=== PATIENT | female | born 1950 | race Hispanic/Latino ===

== ENCOUNTER 2019-11-23 09:28 | Observation (INO) | payer MEDICARE ==
[2019-11-23] MEDS ORDERED: ONDANSETRON 4 MG/2 ML INJ IV ONE ×2 (09:36→11:33)
[2019-11-23] MEDS ORDERED: SODIUM CHLORIDE 0.9% 1000 ML 1,000 ML IV ONE ×3 (09:38→11:33)
[2019-11-23] MEDS ORDERED: SODIUM CHLORIDE 0.9% 1000 ML 1,000 ML ONE (09:40)
[2019-11-23] MEDS ORDERED: ONDANSETRON 4 MG/2 ML INJ ONE (09:40)
--- NOTE | 2019-11-23 09:48 | Emergency Department Report ---
ED General Adult HPI - General Chief complaint: Nausea/Vomiting/Diarrhea Stated complaint: N/V Time Seen by Provider: 11/23/19 09:36 Source: patient, EMS Mode of arrival: Stretcher Limitations: No Limitations - History of Present Illness Initial comments: Patient is 69 years old female with history of hypertension, diabetes and hyperlipidemia. Patient presented to the ER via EMS from home for evaluation of nausea and vomiting. Patient stated that symptoms started yesterday after she ate chicken in a restaurant last night. Patient stated that she is unable to keep anything down. Patient denied any abdominal pain, chest pain, shortness of breath or diarrhea. No fever or chills. - Related Data Allergies Allergy/AdvReac Type Severity Reaction Status Date / Time No Known Allergies Allergy Verified 11/23/19 09:29 ED Review of Systems ROS: Stated complaint: N/V Other details as noted in HPI Comment: All other systems reviewed and negative Constitutional: denies: chills, fever Respiratory: denies: cough, orthopnea, shortness of breath, SOB with exertion, SOB at rest, wheezing Cardiovascular: denies: chest pain, palpitations Gastrointestinal: nausea, vomiting. denies: abdominal pain, diarrhea, constipation, hematemesis, melena, hematochezia Musculoskeletal: denies: back pain Neurological: denies: headache, weakness, numbness, paresthesias, confusion, abnormal gait ED Past Medical Hx - Past Medical History Previous Medical History?: Yes Hx Hypertension: Yes Hx Diabetes: Yes - Surgical History Past Surgical History?: No ED Physical Exam - General Limitations: No Limitations General appearance: alert, other (Patient is actively vomiting in the emergency room) - Head Head exam: Present: atraumatic, normocephalic, normal inspection - Eye Eye exam: Present: normal appearance - ENT ENT exam: Present: mucous membranes dry - Neck Neck exam: Present: normal inspection, full ROM. Absent: tenderness, meningismus, lymphadenopathy, thyromegaly - Respiratory Respiratory exam: Present: normal lung sounds bilaterally - Cardiovascular Cardiovascular Exam: Present: regular rate, normal rhythm, normal heart sounds - GI/Abdominal GI/Abdominal exam: Present: soft, normal bowel sounds. Absent: distended, tenderness, guarding, rebound, rigid, organomegaly, mass, bruit, pulsatile mass, hernia - Extremities Exam Extremities exam: Present: normal inspection, full ROM, normal capillary refill. Absent: tenderness, pedal edema, joint swelling, calf tenderness - Back Exam Back exam: Present: normal inspection, full ROM. Absent: CVA tenderness (R), CVA tenderness (L), muscle spasm, paraspinal tenderness, vertebral tenderness - Neurological Exam Neurological exam: Present: alert, oriented X3, CN II-XII intact, normal gait, reflexes normal. Absent: motor sensory deficit - Psychiatric Psychiatric exam: Present: normal mood - Skin Skin exam: Present: warm, dry, intact, normal color ED Course Vital Signs 11/23/19 11/23/19 11/23/19 09:31 09:35 09:44 Temperature 98.2 F Pulse Rate 89 89 Respiratory 20 Rate Blood Pressure 222/96 Blood Pressure 222/96 [Right] O2 Sat by Pulse 99 100 Oximetry 11/23/19 11/23/19 11/23/19 10:01 10:15 10:31 Temperature Pulse Rate 84 81 83 Respiratory 36 H 13 17 Rate Blood Pressure 222/96 218/116 179/77 Blood Pressure [Right] O2 Sat by Pulse 99 95 83 L Oximetry 11/23/19 11/23/19 11/23/19 10:45 11:01 11:15 Temperature Pulse Rate 78 90 86 Respiratory 17 18 14 Rate Blood Pressure 174/76 174/76 197/137 Blood Pressure [Right] O2 Sat by Pulse 90 97 96 Oximetry 11/23/19 11/23/19 11/23/19 11:45 12:01 12:15 Temperature Pulse Rate 100 H 98 H 98 H Respiratory 19 14 Rate Blood Pressure 197/137 171/88 171/88 Blood Pressure [Right] O2 Sat by Pulse 88 95 Oximetry 11/23/19 12:37 Temperature Pulse Rate 90 Respiratory Rate Blood Pressure 193/77 Blood Pressure [Right] O2 Sat by Pulse Oximetry ED Medical Decision Making - Lab Data Result diagrams: 11/23/19 09:49 11/23/19 14:30 - EKG Data -: EKG Interpreted by Pa EKG shows normal: sinus rhythm Rate: normal - EKG Data Interpretation: no acute changes - Radiology Data Radiology results: report reviewed - Medical Decision Making Patient is 69 years old female with history of hypertension, diabetes and hyperlipidemia. Patient presented to the ER via EMS from home for evaluation of nausea and vomiting. Patient stated that symptoms started yesterday after she ate chicken in a restaurant last night. Patient stated that she is unable to keep anything down. Patient denied any abdominal pain, chest pain, shortness of breath or diarrhea. No fever or chills. Patient with significant intractable nausea and vomiting. Patient received Zofran x2, Reglan, Benadryl and Haldol 5 mg IM. Patient still nauseated. Labs reviewed and showed anion gap of 29 improved to 24 with 2 L of normal saline and 13 units of regular insulin IV. CT abdomen and pelvis is unremarkable. I discussed the patient with Dr. Soto, he agreed to admit the patient to medical service for further management. Critical Care Time: Yes Critical care time in (mins) excluding proc time.: 30 Critical care attestation.: If time is entered above; I have spent that time in minutes in the direct care of this critically ill patient, excluding procedure time. ED Disposition Clinical Impression: DKA (diabetic ketoacidoses), Intractable nausea and vomiting Disposition: OP ADMIT IP TO THIS HOSP Is pt being admited?: Yes Condition: Stable Instructions: Diabetic Ketoacidosis (ED)
[2019-11-23 10:07] LABS: Basophils # (Auto) 0.1 K/mm3 (0.0-0.1); Basophils % (Auto) 0.5 % (0.0-1.8); Hematocrit 40.4 % (30.3-42.9); Hemoglobin 13.7 gm/dl (10.1-14.3); Lymphocytes # (Auto) 0.9 K/mm3 (1.2-5.4); Lymphocytes % (Auto) 8.1 % (13.4-35.0); Mean Corpuscular HGB Conc 34 % (30-34); Mean Corpuscular Volume 81 fl (79-97); Monocytes # (Auto) 0.4 K/mm3 (0.0-0.8); Monocytes % (Auto) 3.3 % (0.0-7.3); Platelet Count 204 K/mm3 (140-440); Red Blood Count 4.98 M/mm3 (3.65-5.03); Red Cell Distribution Width 13.8 % (13.2-15.2)
[2019-11-23] MEDS ORDERED: METOCLOPRAMIDE 10 MG/2 ML INJ IV ONE (10:11)
[2019-11-23] MEDS ORDERED: METOCLOPRAMIDE 10 MG/2 ML INJ ONE (10:12)
[2019-11-23 10:19] LABS: INR 1.05 (0.87-1.13)
[2019-11-23 10:25] LABS: Albumin 4.5 g/dL (3.9-5); Bilirubin,Direct 0.2 mg/dL (0-0.2)
[2019-11-23] MEDS ORDERED: INSULIN REGULAR, HUMAN 100 UNIT/ML 3ML VIAL IV ONE ×2 (10:45→12:19)
[2019-11-23] MEDS ORDERED: INSULIN REGULAR, HUMAN 100 UNITS/1 ML ONE ×2 (11:00)
[2019-11-23 11:25] LABS: Bacteria,Urine 1+ /HPF (Negative); Bilirubin,Urine NEG (Negative); Blood,Urine MOD (Negative); Color,Urine Colorless (Yellow); Urobilinogen,Urine < 2.0 mg/dL (<2.0); WBC,Urine < 1.0 /HPF (0.0-6.0)
[2019-11-23] MEDS ORDERED: diphenhydrAMINE 50 MG/ML VIAL IV ONE (11:33)
[2019-11-23] MEDS ORDERED: diphenhydrAMINE 50 MG/ML VIAL ONE (11:35)
--- NOTE | 2019-11-23 11:39 | XRay Report ---
CHEST 1 VIEW INDICATION: Abdominal Pain. COMPARISON: None. FINDINGS: Support devices: None. Heart: Normal. Lungs/Pleura: There are mild diffuse reticular markings. This may be due to prominent pulmonary vascu lature. No consolidation or effusion, no pneumothorax. Punctate densities projecting over the right axilla may be outside the patient. These could also be w ithin the soft tissues. IMPRESSION: 1. No acute findings. Signer Name: Hank Shook MD Signed: 11/23/2019 11:34 AM Workstation Name: [id number]
--- NOTE | 2019-11-23 12:20 | Cat Scan Report ---
CT ABDOMEN AND PELVIS WITH CONTRAST INDICATION / CLINICAL INFORMATION: MAIN. TECHNIQUE: Axial CT images were obtained through the abdomen and pelvis after 60 cc of Omnipaque [address] scans at this location are performed using CT dose reduction for ALARA by means of automate d exposure control. COMPARISON: None available. FINDINGS: LOWER CHEST: Mitral apparatus calcification and coronary artery atherosclerotic calcification. HEPATOBILIARY: Diffuse hepatic hypoattenuation possibly representing fatty infiltration. Large periph erally calcified gallstone in the gallbladder. No biliary ductal dilatation. PANCREAS: No significant abnormality. SPLEEN: Mildly enlarged. ADRENALS: No significant abnormality. GENITOURINARY: Mild perinephric fluid stranding slightly greater on the left. No solid renal mass or evidence of obstructive uropathy. GASTROINTESTINAL/MESENTERY: No bowel obstruction or inflammation. No free air or significant free flu id. Appendix demonstrates no significant abnormality. RETROPERITONEUM: No significant adenopathy. REPRODUCTIVE ORGANS: No significant abnormality. VASCULAR: Moderate atherosclerotic calcification without acute abnormality. SKELETAL SYSTEM: Postoperative change of left total hip arthroplasty obscures some evaluation of the pelvic structures. Diffuse degenerative change without acute abnormality. ADDITIONAL FINDINGS: None. IMPRESSION: 1. No acute intra-abdominal or intrapelvic pathology identified. 2. Possible hepatic steatosis. 3. Mild perinephric fluid stranding slightly greater on the left. 4. Cholelithiasis without evidence of acute cholecystitis. Signer Name: Carlos Stoner MD Signed: 11/23/2019 12:16 PM Workstation Name: [id number]
[2019-11-23] MEDS ORDERED: HALOPERIDOL LACTATE 5 MG/1 ML INJ ONE (14:14)
[2019-11-23] MEDS ORDERED: FAMOTIDINE 20 MG/2 ML INJ IV ONE ×2 (14:15→14:31)
[2019-11-23] MEDS ORDERED: HALOPERIDOL LACTATE 5 MG/1 ML INJ IM ONE (14:30)
[2019-11-23 15:04] LABS: Calcium 8.8 mg/dL (8.4-10.2)
--- NOTE | 2019-11-23 15:33 | History and Physical Report ---
History of Present Illness Chief complaint: I have been throwing up and I cannot hold anything down. History of present illness: 69 YO Female with HTN, DM, Obesity, Metabolic Syndrome presents to ED for evaluation. Patient states that she has experienced nausea, multiple episodes of vomiting, and abdominal discomfort over the past 1 day with persistent symptoms over the same timeframe. Patient states that symptoms began approximately 2 hours after eating a complementary chicken dinner that was given to her at a local hotel. Patient reports inability to tolerate oral intake for the past 12 hours. EMS was notified and upon arrival the patient was found to be in distress and subsequently transported to [facility] for further evaluation and care. Patient seen and evaluated in the emergency department. Lab and imaging studies reviewed. Patient found to have clinical symptoms consistent with gastroenteritis, as well as accelerated hypertension, and intractable nausea vomiting. Patient placed in observation status and admitted to medical floor. Patient treated with IV fluid resuscitation therapy, bowel rest, and supportive care. Patient denies fever, chills, chest pain, palpitation, productive cough, skin rash, recent ill contacts, or known exposure to COVID-19. Patient reports inability to take her prehospital medication due to nausea and vomiting. No prior admission for review. No medication listed for reconciliation at the time of admission. Advanced care planning conducted in ED. Past History Past Medical History: diabetes, hypertension Past Surgical History: No surgical history, Other (Reviewed) Social history: . denies: smoking, alcohol abuse, prescription drug abuse Family history: diabetes, hypertension Medications and Allergies Allergies Allergy/AdvReac Type Severity Reaction Status Date / Time No Known Allergies Allergy Verified 11/23/19 09:29 Review of Systems Constitutional: no weight loss, no weight gain, no fever, no chills Ears, nose, mouth and throat: no ear pain, no ear discharge, no tinnitis, no decreased hearing, no nose pain Breasts: no change in shape, no swelling, no mass Cardiovascular: no chest pain, no palpitations, no edema Respiratory: no cough, no cough with sputum Gastrointestinal: no abdominal pain, no nausea, no vomiting, no constipation, no change in bowel habits Genitourinary Female: no pelvic pain, no flank pain, no dysuria, no urinary frequency, no stress incontinence Menstruation: no currently menstrual, no premenarcheal, no post hysterectomy, no ammenorrhea on BC, no period heavy Rectal: no pain, no incontinence, no bleeding Musculoskeletal: no neck stiffness, no shooting arm pain, no arm numbn ess/tingling, no low back pain Integumentary: no rash, no pruritis (Have sepsis protocol), no redness, no wounds, no jaundice Neurological: no head injury, no transient paralysis, no weakness, no numbness, no seizures, no syncope, no tremors Psychiatric: no anxiety, no memory loss, no insomnia, no change in appetite, no change in libido Endocrine: no cold intolerance, no polyphagia, no excessive thirst, no polydipsia Hematologic/Lymphatic: no easy bruising, no easy bleeding, no lymphadenopathy Allergic/Immunologic: no urticaria, no allergic rhinitis, no persistent infections, no anaphylaxis Exam - Constitutional Vitals: Temp Pulse Resp BP Pulse Ox 98.2 F 90 14 193/77 95 11/23/19 09:35 11/23/19 12:37 11/23/19 12:15 11/23/19 12:37 11/23/19 12:15 General appearance: Present: mild distress - EENT Eyes: Present: PERRL ENT: hearing intact, clear oral mucosa - Neck Neck: Present: supple, normal ROM - Respiratory Respiratory effort: normal Respiratory: bilateral: CTA - Cardiovascular Heart Sounds: Present: S1 & S2. Absent: rub, click - Extremities Extremities: pulses symmetrical, No edema Peripheral Pulses: within normal limits - Abdominal General gastrointestinal: Present: soft, non-tender, non-distended, normal bowel sounds Female genitourinary: Present: normal - Integumentary Integumentary: Present: dry, clammy, decreased turgor - Musculoskeletal Musculoskeletal: generalized weakness - Psychiatric Psychiatric: appropriate mood/affect, intact judgment & insight - Neurologic Neurologic: CNII-XII intact, moves all extremities HEART Score - HEART Score Troponin: Troponin T 0.011 ng/mL (0.00-0.029) 11/23/19 09:54 Results - Labs CBC & Chem 7: 11/23/19 09:49 11/23/19 14:30 Labs: Abnormal lab results 11/23/19 11/23/19 11/23/19 Range/Units 09:49 09:54 12:29 WBC 11.6 H (4.5-11.0) K/mm3 MCH 27 L (28-32) pg Lymph % (Auto) 8.1 L (13.4-35.0) % Lymph # 0.9 L (1.2-5.4) K/mm3 Seg Neutrophils % 88.1 H (40.0-70.0) % Seg Neutrophils # 10.2 H (1.8-7.7) K/mm3 Sodium 136 L (137-145) mmol/L Chloride 94.5 L (98-107) mmol/L Carbon Dioxide 17 L (22-30) mmol/L BUN 21 H (7-17) mg/dL Glucose 512 H* (65-100) mg/dL POC Glucose 395 H (70-105) Lipase 83 H (13-60) units/L Urine pH (5.0-7.0) 11/23/19 11/23/19 Range/Units 14:30 Unknown WBC (4.5-11.0) K/mm3 MCH (28-32) pg Lymph % (Auto) (13.4-35.0) % Lymph # (1.2-5.4) K/mm3 Seg Neutrophils % (40.0-70.0) % Seg Neutrophils # (1.8-7.7) K/mm3 Sodium (137-145) mmol/L Chloride (98-107) mmol/L Carbon Dioxide 18 L (22-30) mmol/L BUN 18 H (7-17) mg/dL Glucose 376 H (65-100) mg/dL POC Glucose (70-105) Lipase (13-60) units/L Urine pH 8.0 H (5.0-7.0) Assessment and Plan - Patient Problems (1) Gastroenteritis Current Visit: Yes Status: Acute Plan to address problem: CBC, CMP, CT abdomen and pelvis, serial abdominal exam, IV fluid resuscitation therapy, bowel rest, supportive care. (2) Volume depletion Current Visit: Yes Status: Acute Plan to address problem: IV fluid resuscitation therapy, BMP, monitor urine output every shift. (3) Uncontrolled diabetes mellitus Current Visit: Yes Status: Acute Plan to address problem: Sliding scale insulin therapy, Accu-Chek, hypoglycemia protocol, consistent carbohydrate diet when patient is able to tolerate oral intake. (4) Intractable nausea and vomiting Current Visit: Yes Status: Acute Plan to address problem: Antiemetic therapy, bowel rest, IV fluid resuscitation therapy, advance diet as tolerated. (5) Accelerated hypertension Current Visit: Yes Status: Acute Plan to address problem: Monitor blood pressure every shift, IV hydralazine every 6 hours PRN for systolic blood pressure greater than 155. Resume prehospital antihypertensive therapy. (6) DVT prophylaxis Current Visit: Yes Status: Acute Plan to address problem: SCD to bilateral lower extremities while in bed, patient is ambulatory. (7) Advance care planning Current Visit: Yes Status: Acute Plan to address problem: Disease education conducted, patient is full code, patient prognosis discussed, patient acknowledges understanding and agreement with care plan, +30 minutes.
[2019-11-23] MEDS ORDERED: ALBUTEROL 2.5 MG/3 ML NEBU IH PRN (15:40)
[2019-11-23] MEDS ORDERED: ACETAMINOPHEN 325 MG TAB PO PRN (15:40)
[2019-11-23] MEDS ORDERED: DEXTROSE 50% IN WATER (25GM) 50 ML SYRINGE IV PRN (15:51)
[2019-11-23] MEDS: SODIUM CHLORIDE 0.9% 1000 ML 1,000 ML IV SCH (20:17)
[2019-11-23] MEDS: ONDANSETRON 4 MG/2 ML INJ IV PRN (20:38)
[2019-11-23] MEDS: INSULIN LISPRO 100 UNIT/ML VIAL 3 mL SUB-Q SCH (22:57)
[2019-11-23] MEDS ORDERED: ZOLPIDEM 5 MG TAB PO PRN (23:10)
[2019-11-24] MEDS: SODIUM CHLORIDE 0.9% 1000 ML 1,000 ML IV SCH (04:53)
[2019-11-24] MEDS: INSULIN LISPRO 100 UNIT/ML VIAL 3 mL SUB-Q SCH ×2 (04:54→13:47)
[2019-11-24] MEDS: ONDANSETRON 4 MG/2 ML INJ IV PRN (09:14)
[2019-11-24 10:23] LABS: Calcium 8.7 mg/dL (8.4-10.2)
--- NOTE | 2019-11-24 13:12 | Discharge Summary ---
Providers - Providers Date of Admission: 11/23/19 15:56 Attending physician: CIERRA NUNO [facility] Condition: Stable - Discharge Diagnoses (1) Gastroenteritis Status: Acute (2) Volume depletion Status: Acute (3) Uncontrolled diabetes mellitus Status: Acute (4) Intractable nausea and vomiting Status: Acute (5) Accelerated hypertension Status: Acute (6) DVT prophylaxis Status: Acute (7) Advance care planning Status: Acute Exam - Constitutional Vitals: Temp Pulse Resp BP Pulse Ox 98.1 F 68 20 185/69 92 11/24/19 11:04 11/24/19 11:04 11/24/19 11:04 11/24/19 11:04 11/24/19 11:04 Plan Activity: advance as tolerated Diet: diabetic Special Instructions: restrict fluid intake to (8 cups of water daily), record daily weights, record daily BP diary, record blood sugar diary, other (Glucometer/with test strips otc.) Follow up with: ANGELINA HYMAN MD [Primary Care Provider] - 3-5 Days Prescriptions: Insulin Aspart Protam & Aspart [NovoLOG Mix 70-30 Flexpen] 10 unit SQ TIDAC #1 ml Ondansetron [Zofran Odt] 4 mg PO Q8HR #15 tab.[email or web address]
[2019-11-24 17:09] VITALS: BP 176/71
== END 2019-11-24 17:15 | disposition home or self-care (01) ==
LOC: ED 09:28 → 3A 15:56
PROVIDERS: ADMIT Internal Medicine; ATTEND Internal Medicine
DX: K52.9 Noninfective gastroenteritis and colitis, unspecified (principal); E86.9 Volume depletion, unspecified; E11.10 Type 2 diabetes mellitus with ketoacidosis without coma; E11.65 Type 2 diabetes mellitus with hyperglycemia; I10 Essential (primary) hypertension; E88.81 Metabolic syndrome and other insulin resistance; E66.9 Obesity, unspecified; E78.5 Hyperlipidemia, unspecified; Z68.38 Body mass index [BMI] 38.0-38.9, adult; Z79.899 Other long term (current) drug therapy
CPT/HCPCS: 36415; 71045; 74177; 80048; 80076; 81001; 82962; 83690; 84484; 85025; 85610; 93005; 96361; 96372; 96374; 96375; 96376; 99291; G0378; J1200; J1630; J2405; J2765; J7030; Q9967; J1815